=== PATIENT | female | born 2005 | race African-American/Black ===

== ENCOUNTER 2024-06-04 23:55 | Emergency (ER) | payer MEDICAID ==
[~2024-06-04] VITALS: Ht 167.6 cm; Wt 68.0 kg
[2024-06-05 00:16] VITALS: O2SAT 100
[2024-06-05 00:35] LABS: BASOPHILS % 0.6 % (0.0-2.0); HEMATOCRIT. 29.9 % (36.0-48.0); HEMOGLOBIN. 9.8 g/dL (12.0-16.0); LYMPHOCYTES % 26.3 % (20.0-50.0); MEAN CORPUSCULAR HEMOGLOBIN 26.7 pg (28.0-32.0); MEAN CORPUSCULAR HGB CONC 32.9 g/dL (31.0-37.0); MEAN CORPUSCULAR VOLUME 81.4 fL (81.0-99.0); MEAN PLATELET VOLUME 7.3 fl (7.4-10.4); NEUTROPHILS % 60.1 % (40.0-76.0); PLATELET 432 x1000/uL (130-400); RED BLOOD CELL COUNT 3.68 mill/uL (4.2-5.4); RED CELL DISTRIBUTION WIDTH 14.1 % (11.6-14.6); WHITE BLOOD COUNT 6.5 x1000/uL (4.5-11.0)
[2024-06-05 00:45] LABS: CHLORIDE 103 mEq/L (98-107); POTASSIUM 3.8 mEq/L (3.5-5.1); SODIUM 139 mEq/L (136-145)
[2024-06-05 00:46] LABS: CALCIUM 10.1 mg/dL (8.7-10.4); CARBON DIOXIDE 28 mEq/L (21-32)
[2024-06-05 00:51] LABS: CREATININE 0.7 mg/dL (0.6-1.0); GLUCOSE 97 mg/dL (70-105); UREA NITROGEN BLOOD 9 mg/dL (9-23)
[2024-06-05 01:10] LABS: TROPONIN I HIGH SENSITIVITY < 4 ng/L (3.0-34)
[2024-06-05] MEDS ORDERED: ALBU18HF2 IH (05:20)
[2024-06-05] MEDS ORDERED: IOHEXOL-350 100 ML BOTTLE ONE (05:22)
[2024-06-05 05:39] VITALS: BP 122/75; PULSE 87; RESP 16; TEMP 36.7; O2SAT 100
== END 2024-06-05 05:41 | disposition home or self-care (01) ==
LOC: ER 23:55
DX: R06.02 Shortness of breath (principal)
CPT/HCPCS: 99285; 71275; 71045; 80048; 85025; 85379; 84484; 36415; Q9967